=== PATIENT | female | born 1985 | race African-American/Black ===

== ENCOUNTER 2024-05-13 15:44 | Inpatient (IN) | payer SELFPAY ==
[2024-05-13 17:36] LABS: #Basophils 0.03 10x3/uL (0.0-0.2); %Basophils 0.3 % (0.0-1.0); %Eosinophils 0.5 % (0.0-10.0); %Lymphocytes 4.8 % (21.0-51.0); %Monocytes 5.9 % (0.0-10.0); Hematocrit 44.4 % (36.0-47.0); Hemoglobin 14.8 g/dL (12.0-16.0); Mean Corpuscular HGB CONC 33.3 g/dL (32.0-36.0); Mean Corpuscular Hemoglobin 29.7 pg (27.0-31.0); Platelet Count 304 10x3/uL (130-400); RBC Distribution Width 12.1 % (11.5-14.5); Red Blood Cell (RBC) Count 4.99 mill/uL (4.20-5.40)
[2024-05-13 17:49] LABS: INR-International Normal Ratio 1.1; Prothrombin Time 14.5 sec (12.0-14.7)
[2024-05-13 17:50] LABS: ALT (SGPT) 18 U/L (8-55); AST (SGOT) 16 U/L (5-34); Albumin 4.5 g/dL (3.5-5.0); Alkaline Phosphatase 60 U/L (40-110); Anion Gap 13 mmol/L (10-20); BUN (Urea Nitrogen) 11 mg/dL (7.0-18.7); Bilirubin, Total 1.2 mg/dL (0.2-1.2); Calc. Creatinine Clearance 0 mL/min (70-130); Calcium 9.9 mg/dL (7.8-10.44); Carbon Dioxide 25 mmol/L (22-29); Chloride 100 mmol/L (98-107); Estimated GFR 71; Globulin 3.6 g/dL (2.4-3.5); Glucose 101 mg/dL (70-105); Potassium 3.8 mmol/L (3.5-5.1); Protein, Total 8.1 g/dL (6.0-8.3); Sodium 134 mmol/L (136-145)
[2024-05-13 17:52] LABS: Troponin I Less than 0.010 ng/mL (< 0.028)
[2024-05-13 18:01] LABS: PTT 22.4 sec (22.9-36.1)
[2024-05-13] MEDS ORDERED: hydrALAZINE 20 MG/ML VIAL SLOW IVP PRN (18:50)
[2024-05-13 19:50] LABS: Amphetamine Not Detected (NotDetected); Barbiturates Screen Not Detected (NotDetected); Benzodiazepine Screen Not Detected (NotDetected); Cocaine Metabolite Screen Not Detected (NotDetected); Methadone Not Detected (NotDetected); Methamphetamine Not Detected (NotDetected); Opiate Screen Not Detected (NotDetected); Oxycodone Screen Not Detected (NotDetected); Phencyclidine (PCP) Not Detected (NotDetected); THC/Cannabinoid Screen Not Detected (NotDetected); Tricyclic Screen Not Detected (NotDetected)
[2024-05-13 19:55] LABS: Bacteria/HPF None Seen HPF (None Seen); Bilirubin Negative (Negative); Blood, Urine Negative (Negative); CAUTI Indications for Culture Pelvic or flank pain; Clarity Clear (Clear); Glucose, Urine (Dipstick) Normal (Negative); Ketone, Urine Negative (Negative); Leukocyte Negative Leu/uL (Negative); Nitrite Negative (Negative); Protein, Urine (Dipstick) 10 mg/dL (Neg-Trace); RBC/HPF 0-3 HPF (0-3); Urobilinogen Normal mg/dL (Less than 2); WBC/HPF 0-3 HPF (0-3); pH, Urine 7.5 (5.0-9.0)
[2024-05-13 19:57] LABS: Specific Gravity, Urine 1.062 (1.002-1.036)
[2024-05-13 19:58] LABS: Urine Culture Reflex No No
[2024-05-13 21:39] VITALS: BMI 25.7
[2024-05-13] MEDS: Rosuvastatin 20 MG TAB PO SCH (22:08)
[2024-05-13] MEDS: Enoxaparin 40 MG (0.4 mL) SYRINGE SC SCH (22:08)
[2024-05-14] MEDS: Acetaminophen 325 MG TAB PO PRN (01:04)
[2024-05-14 04:06] LABS: #Basophils 0.03 10x3/uL (0.0-0.2); %Basophils 0.6 % (0.0-1.0); %Eosinophils 2.1 % (0.0-10.0); %Lymphocytes 20.5 % (21.0-51.0); %Monocytes 10.3 % (0.0-10.0); %Neutrophils 66.3 % (42.0-75.0); Hemoglobin 12.3 g/dL (12.0-16.0); Mean Corpuscular HGB CONC 32.4 g/dL (32.0-36.0); Mean Corpuscular Hemoglobin 29.7 pg (27.0-31.0); Mean Corpuscular Volume 91.8 fL (78.0-98.0); Mean Platelet Volume 9.9 fL (7.4-10.4); Platelet Count 248 10x3/uL (130-400); RBC Distribution Width 12.1 % (11.5-14.5); Red Blood Cell (RBC) Count 4.14 mill/uL (4.20-5.40)
[2024-05-14 04:48] LABS: Anion Gap 12 mmol/L (10-20); BUN (Urea Nitrogen) 9 mg/dL (7.0-18.7); Calc. Creatinine Clearance 90 mL/min (70-130); Calcium 9.3 mg/dL (7.8-10.44); Carbon Dioxide 23 mmol/L (22-29); Cardiac Risk 5.7 (Less than 4.5); Chloride 106 mmol/L (98-107); Cholesterol 195 mg/dl (< 200 Desired); Estimated GFR 89; Glucose 93 mg/dL (70-105); HDL Cholesterol 34 mg/dL (>60 Neg Risk); LDL Cholesterol, Calculated 148 mg/dL; Potassium 3.8 mmol/L (3.5-5.1); Sodium 137 mmol/L (136-145); Triglycerides 67 mg/dL (Less than 150)
[2024-05-14] MEDS: Aspirin 81 mg Enteric Coated Tablet PO SCH (08:18)
[2024-05-14] MEDS: Enoxaparin 40 MG (0.4 mL) SYRINGE SC SCH (08:18)
[2024-05-14 14:46] LABS: INR-International Normal Ratio 1.6; PTT 41.7 sec (22.9-36.1); Prothrombin Time 19.4 sec (12.0-14.7)
[2024-05-14 14:49] LABS: D-Dimer Test Less than 0.27 mcg/mL (0.27-0.43)
[2024-05-15 05:55] LABS: Hemoglobin A1c 5.1 % (4.0-6.0)
[2024-05-15] MEDS: Polyethylene Glycol 3350 17 GM Packet PO SCH ×2 (22:34→22:39)
[2024-05-16 07:55] VITALS: BP 128/86; TEMP 98.4
[2024-05-17 12:20] LABS: ANA Symphony (Qualitative) Negative (Negative); ANA Symphony (Quantitative) 0.3 Ratio (< 0.7 Negative); dsDNA IgG Antibody 0.7 IU/mL (<10 Negative)
[2024-05-17 12:42] LABS: Cardiolipin IgA Ab 1.8 APL-U/mL (<14 Negative); Cardiolipin IgM Ab 1.9 MPL-U/mL (<10 Negative); EliA APS New Method **** NEW METHOD ****
== END 2024-05-16 11:47 | disposition home or self-care (01) | DRG 66 ==
LOC: ERS 15:44 → 2SE 19:38 → OBSVTOIN 05-14 13:30
PROVIDERS: ADMIT Internal Medicine; ATTEND Family Medicine
DX: I63.412 Cerebral infarction due to embolism of left middle cerebral artery (principal); E78.5 Hyperlipidemia, unspecified; I10 Essential (primary) hypertension; Z79.82 Long term (current) use of aspirin; Z79.899 Other long term (current) drug therapy; R47.01 Aphasia
CPT/HCPCS: 36415; 70450; 70496; 70498; 70551; 72040; 72072; 80048; 80053; 80061; 80306; 81001; 83036; 83090; 84443; 84484; 85025; 85300; 85303; 85306; 85307; 85598; 85610; 85730; 86038; 86147; 86225; 93005; 93306; 94760; 96372; 99285; G0378; J1650